=== PATIENT | male | born 1940 | race Caucasian/White ===

== ENCOUNTER → 2020-10-21 08:02 | Outpatient (BNVA) | payer MEDICARE, BC, SELFPAY | PROVIDERS: PCP Family Medicine; Referring Provider Ophthalmology; Visit Provider Specialist | DX: H49.11 Fourth [trochlear] nerve palsy, right eye (principal); M19.90 Unspecified osteoarthritis, unspecified site; Z79.52 Long term (current) use of systemic steroids; R70.0 Elevated erythrocyte sedimentation rate; Z98.890 Other specified postprocedural states; Z87.891 Personal history of nicotine dependence | CPT/HCPCS: 99204; 99205; 99214 ==